=== PATIENT | female | born 1955 | race Caucasian/White ===

== ENCOUNTER → 2019-12-12 11:39 | Outpatient (BNVA) | payer BC, SELFPAY | PROVIDERS: Family Provider Family Medicine; PCP Internal Medicine Medical Oncology; Visit Provider Nurse Practitioner | DX: R39.9 Unspecified symptoms and signs involving the genitourinary system (principal); N39.0 Urinary tract infection, site not specified | CPT/HCPCS: 81003 ==

== ENCOUNTER → 2020-04-10 13:50 | Outpatient (BNVA) | payer BC, SELFPAY | PROVIDERS: Family Provider Family Medicine; PCP Family Medicine; Visit Provider Obstetrics & Gynecology | DX: N39.41 Urge incontinence (principal) | CPT/HCPCS: 80053; 81000 ==

== ENCOUNTER 2020-04-25 12:17 | Outpatient (CLI) | payer BC, SELFPAY ==
[2020-04-25 12:50] LABS: Basophils % 0.7 %; Eosinophils # 0.1 10^3/uL (0.0-0.8); Eosinophils % 2.1 %; Hematocrit 41.9 % (37.0-47.0); Hemoglobin 13.5 g/dL (11.5-15.3); Lymphocytes # 1.4 10^3/uL (0.8-4.8); Lymphocytes % 24.2 %; Mean Corpuscular HGB Conc 32.2 g/dL (30.0-36.0); Mean Corpuscular Hemoglobin 29.9 pg (28.0-34.0); Mean Corpuscular Volume 92.9 fL (81-99); Mean Platelet Volume 10.6 fL (7.4-10.4); Monocytes # 0.4 10^3/uL (0.2-0.9); Neutrophils # 3.8 10^3/uL (1.8-7.7); Neutrophils % 65.7 %; Nucleated Red Blood Cells % 0 %; Platelet Count 239 10^3/cmm (130-400); Red Blood Count 4.51 10^6/uL (4.1-5.3); Red Cell Distribution Width 13.8 % (12.1-15.1); White Blood Count 5.8 10^3/uL (4.0-10.0)
[2020-04-25 13:17] LABS: 25 Hydroxy Vitamin D 29 ng/mL (30-100); Alanine Aminotransferase 36 U/L (0-33); Albumin Level 4.3 g/dL (3.5-5.2); Alkaline Phosphatase 128 IU/L (35-105); Anion Gap 17.5 (5-19); Aspartate Amino Transferase 26 U/L (0-32); Blood Urea Nitrogen 13 mg/dL (8-23); Calcium 9.3 mg/dL (8.5-10.5); Carbon Dioxide 25 mmol/L (22-29); Chloride 103 mmol/L (98-107); Globulin 2.8 g/dL (1.3-4.6); Glomerular Filtration Rate 83.7 mL/min (90-130); Glucose 99 mg/dL (65-115); Osmolality Calculated 288 mOsm/kg (285-295); Potassium 4.5 mmol/L (3.5-5.1); Sodium 141 mmol/L (136-145); Thyroid Stimulating Hormone 3.55 uIU/mL (0.27-4.20); Total Bilirubin 0.2 mg/dL (0.15-1.2); Total Protein 7.1 g/dL (6.6-8.7)
--- NOTE | 2020-04-30 13:14 | ONC FU_ITS ---
[facility] Patient Note Patient: Callie Ramires Unit #: [id number]: [id number] Dictated By: Yony CooperDate of Visit: Apr 25, 2020 Onc MED Follow-Up/Prog Note Chief Complaint: Breast cancer. History of Present Illness: Mrs Ramires is a 64 year-old woman with grade I invasive ductal carcinoma of the right breast, stage IA (T1a, N0, M0), ER/TX positive and HER-2/blaise negative. She had previous treatment for ductal carcinoma in situ of the right breast in 2001. At that time she underwent excisional biopsy followed by reexcision lumpectomy and radiation to the right breast, which she completed in July 2002 to a total dose of 5040 cGy. She was given adjuvant tamoxifen, which she stopped in 2004 after completing 5 years of treatment. A screening mammogram in April 2014 showed scarring in the posterior right upper outer quadrant, similar to previous studies. Also noted, though, was an enlarging nodule just anterior to the postsurgical scar, measuring 7 mm on the current study. A subsequent ultrasound showed a slightly lobulated hypoechoic mass measuring 4.5 x 4.4 mm. The appearance was moderately suspicious for malignancy. She underwent ultrasound directed needle core biopsy on 05/26/2014. Pathology showed low grade infiltrating ductal carcinoma (grade 1/3). It was ER positive at 98% and TX positive at 96%. It was negative for overexpression of HER-2/blaise by IHC and by FISH. On 06/20/2014 she underwent right modified radical mastectomy with immediate TRAM flap reconstruction. The procedure also included reduction mammoplasty on the left breast. Pathology showed no residual invasive or in situ carcinoma in the mastectomy specimen and there was no involvement in 5 lymph nodes. Her postoperative course was uneventful other than the fact that she has had a long hard recovery . I had seen her again in July 2014, and following that visit she did start adjuvant hormonal therapy with anastrozole. She had evidence of osteopenia on her baseline bone density study, with T score -1.8 in the lumbar spine, -2.2 in the left hip, and -2.2 in the right hip. She started treatment with Prolia in August 2014. Dr Bonilla had seen her in October 2014 with complaints of fatigue and pain in the hips and tailbone area. He initially just had her try ibuprofen for it and continue the anastrozole, but the pain had subsequently worsened and became more generalized, to include the arms and legs. At that point Dr Bonilla did have her stop the anastrozole. Her pain did improve after stopping anastrozole, but it did not completely resolved. She then had further evaluation with bone scan in December 2014. It showed no evidence of metastatic disease. She restarted hormonal therapy with Aromasin in January 2015, and at that time she also was started on meloxicam. She had initially been tolerating the Aromasin well. However, on a scheduled follow-up visit in August 2015, she had reported significant increase in joint pain, and at that point Dr Bonilla did have her stop the medication. She was feeling better on a followup visit the next month. She has since then remained on observation/expectant management for the breast cancer. Her DEXA scan on 03/28/2017 showed severe osteopenia with T score -1.3 in the lumbar spine and mean femoral neck T score -2.1. She continued treatment with Prolia along with calcium and vitamin D supplements. However, the Prolia was subsequently discontinued due to a skin eruption. Her other medical illnesses have been limited to degenerative arthritis, GERD, and allergic rhinitis. She also has chronic anxiety. She is a nonsmoker, and she does not drink alcohol. She is here today for unscheduled visit. She is due for follow-up in August 2020. However she presents today with concerns for right shoulder and humeral pain as well as neck pain. She states the pain is been bothering her for a couple of months. She did see her primary care and was placed on Voltaren 75 mg twice daily. She states she does not think it helped just a whole lot maybe just a little but not dramatic . She states that she has some limitations with the shoulder and has some pain pretty much continuous. She states is obviously worse if she tries to work with it or lift anything. She describes neck pain as achy pain. She states that it seems to bother her when she is moving her neck at times. It is not as consistent as the shoulder pain but does tend to bother her. She states that she notices it more when she lays down. She has had no fever or chills. She denies any trauma to the neck or shoulder. She denies any overuse, such as moving furniture or lifting heavy boxes, etc. She denies any new shortness of breath orthopnea. She has had no chest pain or palpitations. Her ECOG is 1 limited due to the shoulder/arm/neck pain. Past Medical History: Allergic rhinitis Anxiety Degenerative arthritis Ductal carcinoma in situ of the right breast Gastroesophageal reflux disease Past Surgical History: Several prior breast biopsies for benign disease Right modfied radical mastectomy with TRAM flap reconstruction-Dr. Ayala in 2013 Colonoscopy in 2005 Excisional biopsy of right breast followed by re-excision lumpectomy in 1999 Allergies: CeleBREX and contrast media. Medications: Baclofen 1 Tablet (of 10 mg) Oral at bedtime Diclofenac Sodium 1 Tablet (of 75 mg) Tablet, enteric coated Oral b.i.d. Levothyroxine Sodium 1 (25 mcg) Tablet Oral daily Omeprazole 1 Tablet (of 20 mg) Tablet, enteric coated Oral daily Family History: Ms. Ramires's father at age 83: cancer history consists of Bladder cancer. Father of bladder cancer at age 83. Mother is still living at age 100. One sister is in good health. 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 Ms. Ramires has never smoked. She has no history of drinking. Ms. Ramires reports the following support systems: lives with spouse, significant other, family, or friends, lives in own house, supportive family/friends willing to assist with needs, and adequate transportation available for expected visits. Her diet consists of regular meals. She indicates her activity level as: daily activities. She has never smoked and she does not drink alcohol. Review Of Symptoms: Constitutional Denies fevers, chills, night sweats. 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 Allergic/Immunologic contrast. Eyes Denies significant visual changes. ENMT Denies changes in hearing, sore throat, mouth sores, difficulty or changes in swallowing ability. Sinus drainage. Endocrine Denies hot flashes or night sweats. Hematologic/Lymphatic Denies easy bruising or bleeding. The patient denies any tender or palpable lymph nodes. Respiratory Denies dyspnea on exertion, chest pain, cough. Cardiovascular Denies anginal chest pain. Gastrointestinal Denies nausea, vomiting, diarrhea, or constipation. History of heartburn controlled Genitourinary (F) No hematuria, hesitancy, incontinence, vaginal bleeding, discharge or other problems with urination. Musculoskeletal right arm pain. Right shoulder pain and neck pain. She states she has been having shoulder pain on the right side for 2 to 3 months. She states it seems to be getting worse. She does have some limited range of motion with the shoulder pain. She has tried anti-inflammatory orals with Voltaren but has had no relief. She has not had any imaging. She also states she is been having some neck pain that she wonders if Lalo is making her shoulders hurt. She also states she continues to have some right arm pain. She states it is kind of in the center of the upper part of her right arm. She states it feels kind of deep. She has had no rash or lesions. She denies any trauma. She states she has been working like she normally does not has not had any injury that she can recall. She states is not been swelling. It has not been red or warm. She states it just hurts. Integumentary Denies chronic rashes, inflammation, ulcerations or skin changes. Neurologic Denies headache, blurred vision, and no areas of focal weakness or numbness. Psychiatric Denies insomnia, depression, shravan or mood swings. Vital Signs: Performed on Apr 25, 2020 11:51 Height - 59.00 in Weight - 122 lbs (HIGH) BSA - 1.49 sq.m BMI - 24.64 Temperature - 98.1 F (LOW) Pulse - 72 /min Respiration - 18 /min BP - 114/57 mm(hg) O2 Sat - 94 % (LOW) Pain - 4,1 - No physically strenuous activity, but ambulatory and able to carry out light or sedentary work (e.g. office work, light house work). (ECOG) Physical Examination: Constitutional Alert, oriented, no acute distress. Skin pink, warm and dry. Head Normocephalic; atraumatic. Eyes Conjunctivae and sclerae are clear and without icterus. Pupils are reactive and equal. Neck Supple without masses or thyromegaly. No jugular venous distension. Back/Spine Non-tender to palpation. Extremities No visible deformities, no cyanosis, clubbing or edema. Limited ROM with right shoulder in rotation. Can lift both arms out to the sides evenly with the shoulder, but does have pain in the right shoulder doing so. No swelling in shoulder, or right arm. No crepitus or joint abnormality noted. Musculoskeletal No tenderness or swelling, normal range of motion in lower extremities without obvious weakness. She has a normal gait today. Integumentary No rashes or lesions. Neurologic No sensory or motor deficits, normal cerebellar function, normal gait. Psychiatric Alert and oriented times three. Coherent speech. Verbalizes understanding of our discussions today. Laboratory:Test performed on Apr 25, 2020 12:34 Sodium 141 mmol/L TSH 3.55 uIU/mL Vitamin D (25-Hydroxy), Total 29 ng/mL Potassium 4.5 mmol/L Chloride 103 mmol/L CO2 25 mmol/L Anion Gap 17.5 BUN 13 mg/dL Creatinine 0.7 mg/dL Cr Clearance (Est) 69.0600 mL/min eGFR 83.7 mL/min Glucose 99 mg/dL Calcium 9.3 mg/dL Protein, Total 7.1 g/dL Albumin 4.3 g/dL Globulin 2.8 g/dL Bilirubin, Total 0.2 mg/dL ALT (SGPT) 36 U/L AST (SGOT) 26 U/L Alkaline Phosphatase 128 IU/L WBC 5.8 10 3/uL RBC 4.51 10 6/uL HGB 13.5 g/dL HCT 41.9 % MCV 92.9 fL MCH 29.9 pg MCHC 32.2 g/dL RDW 13.8 % Platelet Count 239 10 3/cmm MPV 10.6 fL Neutrophils 3.8 10 3/uL Lymphocytes 1.4 10 3/uL Monocytes 0.4 10 3/uL Eosinophils 0.1 10 3/uL Basophils 0.0 10 3/uL Neutrophil % 65.7 % Lymphocyte % 24.2 % Monocyte % 7.0 % Eosinophil % 2.1 % Basophils % 0.7 % NRBC % 0 % Impression: 1. Patient wtih low-grade invasive ductal carcinoma of the right breast, stage IA (T1a, N0, M0), ER/TX positive and HER-2/blaise negative. The diagnosis was established by needle core biopsy on 05/26/2014. She had previously undergone lumpectomy/radiation for ductal carcinoma in situ of the right breast, and she had taken adjuvant tamoxifen. 2. She underwent right modified radical mastectomy with immediate TRAM flap reconstruction on 06/20/14. Pathology, interestingly, showed no residual malignancy in the breast. There also was no involvement in 5 lymph nodes. 3. She was given adjuvant hormonal therapy with anastrozole, which she started in July 2014. She had evidence of osteopenia on her baseline bone density. In view of the risk of osteoporosis with aromatase inhibitors, Dr Bonilla did opt to have her start treatment with Prolia in August 2014. 4. By October 2014 she had to stop the anastrozole because of increasing musculoskeletal pain. Her symptoms subsequently improved, and in January 2015 she restarted hormonal therapy with Aromasin. Initially she had tolerated it well. However, in August 2015 she presented with significant worsening of joint pain, and at that point Dr Bonilla did have her stop treatment. She has since then been followed on observation/expectant management. Her other medical illnesses include: 5. GERD. 6. Allergic rhinitis. 7. Degenerative arthritis. 8. Chronic anxiety. During follow-up she has continued to have some fatigue, and she has had some ongoing problems with pain in her chest wall/reconstruction. She also has had pain in the neck/shoulder area and upper back. She has had a mildly elevated TSH level, but she did relatively poor tolerance for levothyroxine. She is tolerated 25 mcg well thus far. She remains off of any aromatase inhibitor due to significant bone/muscle skeletal pain. She is here today for problem visit with right shoulder/humeral and cervical spine pain. She is had the pain for 2 to 3 months and is not improving with nonsteroidal anti-inflammatory drugs prescribed by her primary care. Plan: 1. Continue observation for the breast cancer. 2. We will check a CBC, CMP and TSH with labs today. She is hypothyroid and has been on levothyroxine 25 mcg daily. 3. I have requested an x-ray of this cervical spine right shoulder and right humerus to evaluate her pain. She does have a history of breast cancer although it was early stage. It has been 6 years since her original diagnosis. 4. I have asked her to increase her Voltaren 100 mg twice daily. This will be the max dosing she can take on the Voltaren. Voltaren gel is now available [id number] if she wanted to try that on the local site. 5. If her x-rays do not show any abnormality my next recommendation would be to pursue MRI of her shoulder. She has had problems with the right arm/shoulder pain for quite some time now and even on her last visit had documented that she was having some right arm pain. She has had no trauma. And therefore cannot account as to why she would be having such significant shoulder pain. It is limiting her activities of daily living. 6. She was due for CT of the chest in October 2019. The impression from the CT of the chest was a 9 mm subpleural opacity in the lingula is stable to slightly smaller and recommend a 6 to 12-month follow-up. There is a stable slightly prominent pre-tracheal lymph node measuring 10 to 11 mm which was unchanged. No new pulmonary opacities. Prior postoperative changes with right mastectomy with breast prosthesis and axillary node dissection but no other abnormalities. 7. We will call Mrs. Ramires with the results of her labs and x-rays once those are obtained. We will determine the next step but however if her x-rays are not informative on why she is having pain my next recommendation be an MRI of the shoulder. She is aware and agreeable to this at this time. Of course the MRI will be subject to insurance approval. 8. She is instructed to contact us in the interim should questions or problems arise. Signed By: Yony Cooper-, AOCNP Owen Bonilla MD <<Signature on File>>
== END 2020-04-25 12:18 | disposition home or self-care (01) ==
LOC: ONCMED 12:20
PROVIDERS: PCP Family Medicine; Visit Provider Nurse Practitioner
DX: M25.511 Pain in right shoulder (principal); M54.2 Cervicalgia; C50.411 Malignant neoplasm of upper-outer quadrant of right female breast; Z17.0 Estrogen receptor positive status [ER+]; E03.9 Hypothyroidism, unspecified; M79.10 Myalgia, unspecified site; E55.9 Vitamin D deficiency, unspecified; M81.8 Other osteoporosis without current pathological fracture; K21.9 Gastro-esophageal reflux disease without esophagitis; J30.9 Allergic rhinitis, unspecified; M19.90 Unspecified osteoarthritis, unspecified site; F41.9 Anxiety disorder, unspecified; Z79.899 Other long term (current) drug therapy; Z92.23 Personal history of estrogen therapy; Z90.11 Acquired absence of right breast and nipple; Z79.1 Long term (current) use of non-steroidal anti-inflammatories (NSAID)
CPT/HCPCS: 80053; 82306; 84443; 85025; 99214

== ENCOUNTER 2020-04-26 16:14 | Outpatient (CLI) | payer BC, SELFPAY ==
--- NOTE | 2020-04-26 | XR_ITS ---
WS: [id number] XR cervical spine 3V* [id number] REASON FOR EXAM: PAIN/WEAKNESS FINDINGS: 3 views of the cervical spine. There is mild degenerate changes of the joints of L[place]ch[place]. Degenerated disc changes C4-5 C5-6. There is no fractures seen. The odontoid process was normal. XR/XR cervical spine 3V* [id number] IMPRESSION: Degenerated disc disease C4-5, C5-6.
--- NOTE | 2020-04-26 | XR_ITS ---
WS: [id number] [place] [id number] REASON FOR EXAM: PAIN/WEAKNESS FINDINGS: The humerus is evaluated with 2 views shaft was normal. There is degenerate changes along the greater tuberosity. There was no fractures or other dyscrasias. XR/[place] [id number] IMPRESSION: Negative right humerus for fractures Degenerate changes off the greater tuberosity.
--- NOTE | 2020-04-26 | XR_ITS ---
WS: [id number] XR shoulder RT min 2V* [id number] REASON FOR EXAM: PAQIN/WEAKNESS FINDINGS: Mild degenerate changes over the greater tuberosity. The glenoid humeral articulations are normal. The scapula and clavicle show no fractures. XR/XR shoulder RT min 2V* [id number] IMPRESSION: Mild degenerated changes off the greater tuberosity.
== END 2020-04-26 16:15 | disposition home or self-care (01) ==
LOC: RAD 16:19
PROVIDERS: PCP Family Medicine; Visit Provider Nurse Practitioner
DX: R53.1 Weakness (principal); M25.521 Pain in right elbow; M25.511 Pain in right shoulder; M50.320 Other cervical disc degeneration, mid-cervical region, unspecified level
CPT/HCPCS: 72040; 73030; 73060

== ENCOUNTER 2020-05-17 15:59 | Outpatient (CLI) | payer BC, SELFPAY ==
--- NOTE | 2020-05-17 16:23 | MR_ITS ---
WS: [id number] MRI RIGHT SHOULDER NONCONTRAST TECHNIQUE: Sagittal T2, coronal T1, T2 and proton density imaging. Axial gradient PDE imaging. CLINICAL INFORMATION: RIGHT SHOULDER PAIN COMPARISON: None. FINDINGS: Mild degenerative arthritis at the AC joint with mild edema. Minimal downsloping of the acromion. Tra ce subacromial/subdeltoid fluid. Serpiginous patchy T2 hyperintense lesion within the humeral head an d proximal neck extends just the articular surface. Findings are suspicious for bony infarct or avasc ular necrosis. Metastatic disease not entirely excluded. Normal supraspinatus. Normal infraspinatus. Normal teres minor. Subscapularis is normal. Biceps tendo n is not visualized in the bicipital groove and likely chronically torn and atrophic. Partially visua lized intra-articular biceps tendon. MR/MR shoulder RT wo con* [id number] IMPRESSION: 1. Serpiginous T2 hyperintense lesion within the humeral head extending into t he neck suspicious for bony infarct or avascular necrosis. No evidence of artic ular collapse. Metastatic disease not entirely excluded. 2. Rotator cuff is intact. 3. Chronic tear of the biceps tendon not visualized in the bicipital groove. 4. Glenoid labrum appears grossly intact.
== END 2020-05-17 16:00 | disposition home or self-care (01) ==
LOC: RADWPI 16:01
PROVIDERS: Family Provider Family Medicine; PCP Family Medicine; Visit Provider Nurse Practitioner
DX: M25.511 Pain in right shoulder (principal); M75.81 Other shoulder lesions, right shoulder
CPT/HCPCS: 73221

== ENCOUNTER 2020-07-25 07:26 | Outpatient (CLI) | payer BC, SELFPAY ==
[2020-07-25 08:30] LABS: Basophils % 0.8 %; Eosinophils # 0.1 10^3/uL (0.0-0.8); Hematocrit 43.1 % (37.0-47.0); Hemoglobin 13.6 g/dL (11.5-15.3); Lymphocytes # 1.2 10^3/uL (0.8-4.8); Lymphocytes % 23.1 %; Mean Corpuscular HGB Conc 31.6 g/dL (30.0-36.0); Mean Corpuscular Volume 95.1 fL (81-99); Mean Platelet Volume 10.9 fL (7.4-10.4); Monocytes # 0.3 10^3/uL (0.2-0.9); Monocytes % 5.7 %; Neutrophils # 3.47 10^3/uL (1.8-7.7); Nucleated Red Blood Cells % 0 %; Platelet Count 229 10^3/cmm (130-400); Red Blood Count 4.53 10^6/uL (4.1-5.3); Red Cell Distribution Width 13.6 % (12.1-15.1); White Blood Count 5.1 10^3/uL (4.0-10.0)
[2020-07-25 09:13] LABS: 25 Hydroxy Vitamin D 23 ng/mL (30-100); Alanine Aminotransferase 42 U/L (0-33); Albumin Level 4.2 g/dL (3.5-5.2); Alkaline Phosphatase 114 IU/L (35-105); Aspartate Amino Transferase 23 U/L (0-32); Blood Urea Nitrogen 16 mg/dL (8-23); Calcium 8.8 mg/dL (8.5-10.5); Carbon Dioxide 26 mmol/L (22-29); Chloride 101 mmol/L (98-107); Globulin 2.9 g/dL (1.3-4.6); Glomerular Filtration Rate 71.8 mL/min (90-130); Glucose 104 mg/dL (65-115); Osmolality Calculated 283 mOsm/kg (285-295); Sodium 138 mmol/L (136-145); Thyroid Stimulating Hormone 3.81 uIU/mL (0.27-4.20); Total Bilirubin 0.2 mg/dL (0.15-1.2); Total Protein 7.1 g/dL (6.6-8.7)
== END 2020-07-25 07:27 | disposition home or self-care (01) ==
LOC: ONCMED 07:28
PROVIDERS: PCP Family Medicine; Visit Provider Nurse Practitioner
DX: C50.411 Malignant neoplasm of upper-outer quadrant of right female breast (principal); M81.8 Other osteoporosis without current pathological fracture; F41.9 Anxiety disorder, unspecified; R00.2 Palpitations; Z17.0 Estrogen receptor positive status [ER+]
CPT/HCPCS: 80053; 82306; 84443; 85025

== ENCOUNTER 2020-07-26 06:04 | Outpatient (CLI) | payer BC, SELFPAY ==
--- NOTE | 2020-07-29 14:42 | ONC FU_ITS ---
Dr. Bonilla Patient Follow-Up Note Patient: Callie Ramires Unit #: [id number]: 1955 Dicatated By: Owen Bonilla M.D.Date of Visit:Jul 26, 2020 Onc Med Follow-up/Prog Note Chief Complaint: Breast cancer. 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 She had previous treatment for ductal carcinoma in situ of the right breast in 2001. At that time she underwent excisional biopsy followed by reexcision lumpectomy and radiation to the right breast, which she completed in July 2002 to a total dose of 5040 cGy. She was given adjuvant tamoxifen, which she stopped in 2004 after completing 5 years of treatment. A screening mammogram in April 2014 showed scarring in the posterior right upper outer quadrant, similar to previous studies. Also noted, though, was an enlarging nodule just anterior to the postsurgical scar, measuring 7 mm on the current study. A subsequent ultrasound showed a slightly lobulated hypoechoic mass measuring 4.5 x 4.4 mm. The appearance was moderately suspicious for malignancy. She underwent ultrasound directed needle core biopsy on 05/26/2014. Pathology showed low grade infiltrating ductal carcinoma (grade 1/3). It was ER positive at 98% and NJ positive at 96%. It was negative for overexpression of HER-2/blaise by IHC and by FISH. On 06/20/2014 she underwent right modified radical mastectomy with immediate TRAM flap reconstruction. The procedure also included reduction mammoplasty on the left breast. Pathology showed no residual invasive or in situ carcinoma in the mastectomy specimen and there was no involvement in 5 lymph nodes. Her postoperative course was uneventful other than the fact that she has had a long hard recovery . I had seen her again in July 2014, and following that visit she did start adjuvant hormonal therapy with anastrozole. She had evidence of osteopenia on her baseline bone density study, with T score -1.8 in the lumbar spine, -2.2 in the left hip, and -2.2 in the right hip. She started treatment with Prolia in August 2014. I had seen her in October 2014 with complaints of fatigue and pain in the hips and tailbone area. I initially just had her try ibuprofen for it and continue the anastrozole, but the pain had subsequently worsened and became more generalized, to include the arms and legs. At that point I did have her stop the anastrozole. Her pain did improve after stopping anastrozole, but it did not completely resolved. She then had further evaluation with bone scan in December 2014. It showed no evidence of metastatic disease. She restarted hormonal therapy with Aromasin in January 2015, and at that time she also was started on meloxicam. She had initially been tolerating the Aromasin well. However, on a scheduled follow-up visit in August 2015, she had reported significant increase in joint pain, and at that point I did have her stop the medication. She was feeling better on a followup visit the next month. She has since then remained on observation/expectant management for the breast cancer. Her DEXA scan on 03/28/2017 showed severe osteopenia with T score -1.3 in the lumbar spine and mean femoral neck T score -2.1. She continued treatment with Prolia along with calcium and vitamin D supplements. However, the Prolia was subsequently discontinued due to a skin eruption. Her other medical illnesses have been limited to degenerative arthritis, GERD, and allergic rhinitis. She also has chronic anxiety. She is a nonsmoker, and she does not drink alcohol. She is seen for a followup visit. She has not been feeling as good. She says she has been doing more, but then she tends to crash. Her ECOG score is 1. She has good appetite. She has no fever, night sweats, or hot flashes. 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 She is having difficulty sleeping, mainly because she tends to wake up during the night and then cannot get back to sleep. She also has pain in her knees and fingers and she has pain on the bottoms of her feet. She sometimes has numbness in her left hand. She has had a skin cancer removed from the left arm. Medications: Ativan 0.5 Tablet (of 1 mg) Oral daily PRN, Diclofenac Sodium 2 Tablet (of 75 mg) Tablet, enteric coated Oral at bedtime, Flonase 1 [place](s) (of 50 mcg/act) Suspension Nasal PRN, Gabapentin 1 Capsule (of 100 mg) Oral at bedtime PRN, Levothyroxine Sodium 1 (25 mcg) Tablet Oral daily, Omeprazole 1 Tablet (of 20 mg) Tablet, enteric coated Oral daily PRN Allergies: CeleBREX, contrast media, and -mycin. Review of Systems: Constitutional - She does not have good energy. She has been doing more, but she tends to crash. Appetite is good and weight is stable. No fever, night sweats, or hot flashes. ECOG score is 1, ENMT - She has sinus drainage. No mouth sores. No sore throat or difficulty swallowing, Hematologic/Lymphatic - No abnormal bruising or bleeding, Respiratory - No shortness of breath. She sometimes has cough attributable to a tickle in her throat. No pleuritic pain or hemoptysis, Cardiovascular - No angina pain. No palpitations, Gastrointestinal - No nausea or vomiting. She has acid reflux. She does get benefit with omeprazole, which she takes as needed. No diarrhea or constipation. No blood in the stool or black stools, Genitourinary (F) - No dysuria or hematuria. No urinary frequency. She has some mild incontinence, Musculoskeletal - She has significant pain in the right shoulder and arm. She has pain in her knees and in her fingers. She also has pain on the bottoms of her feet, Integumentary - She had a skin cancer removed from her left arm, Neurologic - No headache or dizziness. She sometimes has numbness in her left hand. No other focal neurologic symptoms, Psychiatric - She has anxiety/depression. She does not sleep well at night. Vital Signs: Performed on Jul 26, 2020 16:03 Height - 59.00 in Weight - 121.4 lbs (LOW) BSA - 1.49 sq.m BMI - 24.52 Temperature - 97.5 F (LOW) Pulse - 67 /min Respiration - 18 /min BP - 117/56 mm(hg) O2 Sat - 98 % Pain - 0 Physical Examination: Constitutional - She looks pretty good generally, Eyes - Sclerae nonicteric. Conjunctivae clear, ENMT - No lesions noted in the oral cavity, Hematologic/Lymphatic - No cervical or clavicular adenopathy, Respiratory - Lungs are clear with good air movement bilaterally, Cardiovascular - Heart rhythm is regular. There is no murmur, gallop, or rub noted, Breasts - There is slight soft tissue swelling in the upper right chest wall. There are chest wall lesions noted. The left breast shows no mass. There is no axillary adenopathy, Abdomen - Soft. Liver and spleen are not enlarged. There is no abdominal mass or ascites noted and there is no inguinal adenopathy, Extremities - No edema, Neurologic - No focal neurologic deficits noted. Lab/Imaging: CBC shows hemoglobin 13.6 g, white blood cell count 5100, and platelet count 229,000. Comprehensive metabolic profile is unremarkable except for slightly elevated SGPT at 42/33 U/L and slightly elevated alkaline phosphatase at 114/105 IU/L. TSH is normal at 3.81 ???IU/mL. Impression: 1. Patient wtih low-grade invasive ductal carcinoma of the right breast, stage IA (T1a, N0, M0), ER/NJ positive and HER-2/blaise negative. The diagnosis was established by needle core biopsy on 05/26/2014. She had previously undergone lumpectomy/radiation for ductal carcinoma in situ of the right breast, and she had taken adjuvant tamoxifen. 2. She underwent right modified radical mastectomy with immediate TRAM flap reconstruction on 06/20/14. Pathology, interestingly, showed no residual malignancy in the breast. There also was no involvement in 5 lymph nodes. 3. She was given adjuvant hormonal therapy with anastrozole, which she started in July 2014. She had evidence of osteopenia on her baseline bone density. In view of the risk of osteoporosis with aromatase inhibitors, I did opt to have her start treatment with Prolia in August 2014. 4. By October 2014 she had to stop the anastrozole because of increasing musculoskeletal pain. Her symptoms subsequently improved, and in January 2015 she restarted hormonal therapy with Aromasin. Initially she had tolerated it well. However, in August 2015 she presented with significant worsening of joint pain, and at that point I did have her stop treatment. She has since then been followed on observation/expectant management. Her other medical illnesses include: 5. GERD. 6. Allergic rhinitis. 7. Degenerative arthritis. 8. Chronic anxiety. During follow-up she has continued to have some fatigue, and she has had some ongoing problems with pain in her chest wall/reconstruction. She also has had pain in the neck/shoulder area and upper back. She had a mildly elevated TSH level, but she had relatively poor tolerance for levothyroxine. She had subsequently developed more significant pain in the right shoulder and arm, and her MRI in May 2020 showed a T2 hyperintense lesion within the humeral head which was suspicious for bony infarct or avascular necrosis. At this point she continues to have pain in that area and she continues to have significant chest wall pain. She is now being followed at orthopedic clinic. Plan: She remains on observation/expectant management for the breast cancer. She will continue treatment with diclofenac for the right shoulder pain. She will stop the gabapentin, which she has not tolerated very well, and I will have her try Lyrica 75 mg twice daily. She will also start trazodone at bedtime, initially at 25 mg, but that dosage can be escalated as needed. She will be scheduled for a follow-up visit in 6 months. Signed By: Owen Bonilla M.D. <<Signature on File>>
== END 2020-07-26 06:05 | disposition home or self-care (01) ==
LOC: ONCMED 06:06
PROVIDERS: PCP Family Medicine; Visit Provider Internal Medicine Medical Oncology
DX: C50.411 Malignant neoplasm of upper-outer quadrant of right female breast (principal); M25.511 Pain in right shoulder; K21.9 Gastro-esophageal reflux disease without esophagitis; M19.90 Unspecified osteoarthritis, unspecified site; F41.9 Anxiety disorder, unspecified; M85.80 Other specified disorders of bone density and structure, unspecified site; Z90.11 Acquired absence of right breast and nipple; Z17.0 Estrogen receptor positive status [ER+]; Z92.23 Personal history of estrogen therapy; Z79.899 Other long term (current) drug therapy
CPT/HCPCS: 99214

== ENCOUNTER 2020-09-11 07:44 | Outpatient (CLI) | payer BC, SELFPAY ==
--- NOTE | 2020-09-11 08:05 | MM_ITS ---
WS: [id number] DIAGNOSTIC LEFT DIGITAL MAMMOGRAM WITH CAD HISTORY: HX OF BREAST Ca; rt MASTECTOMY COMPARISON: 09/09/2019 and 09/07/2018 Technique: CC, MLO and ML views. Breast composition: There are scattered areas of fibroglandular density. There are a few scattered b enign calcifications. No distortion or soft tissue. No mass identified or change. MM/[place] [id number] IMPRESSION: BI-RADS: 2-Benign FOLLOW UP: 1 Year Follow-up
== END 2020-09-11 07:45 | disposition home or self-care (01) ==
LOC: ONCMED 07:48
PROVIDERS: PCP Family Medicine; Visit Provider Internal Medicine Medical Oncology
DX: C50.411 Malignant neoplasm of upper-outer quadrant of right female breast (principal); Z17.0 Estrogen receptor positive status [ER+]; M81.0 Age-related osteoporosis without current pathological fracture; Z85.3 Personal history of malignant neoplasm of breast
CPT/HCPCS: 77065

== ENCOUNTER 2020-12-11 06:58 | Outpatient (CLI) | payer BC, SELFPAY ==
--- NOTE | 2020-12-11 07:15 | USCV_ITS ---
Callie Ramires Age: 65 Gender: F : 1955 Exam Date: 12/11/2020 07:14 Ordering Phys: Maritza Dave DO Technologist: Veronica Gongora [place] [facility] [place] Indication: BRUIT Risk Factors: Previous Vascular Surgery: Right Brachial BP: / Left Brachial BP: / Right Left Velocity (cm/s) Spectral Plaque Velocity (cm/s) Spectral Plaque Syst/Diast Broadening Syst/Diast Broadening 115.80/28.70 Prox CCA 109.20/ 29.80 94.80/ 32.00 Mid CCA 89.30 / 23.20 72.80/ 24.30 Distal CCA 73.90 / 24.30 75.00/ 13.20 Prox ICA 79.40 / 29.80 71.70/ 20.90 Mid ICA 90.40 / 27.60 93.70/ 25.40 Distal ICA 89.30 / 28.70 82.70 ECA 120.20 0.99 ICA/CCA 1.01 Antegrade Vertebral Antegrade 33.10/ 11.00 cm/s 45.20/ 16.50 cm/s Tri Subclavian Tri FINDINGS Minimal plaques at the bifurcations bilaterally. Intimal thickening in the common carotid arteries bilaterally. Antegrade flow in the vertebral arteries bilaterally. Normal Doppler flow signals bilaterally. CONCLUSIONS Minimal plaques at the bifurcations bilaterally. No significant stenosis, based on the above findings Dr Eben Miguel MD FAC (Electronically Signed) Final Date: 11 December 2020 18:27 S
== END 2020-12-11 06:59 | disposition home or self-care (01) ==
PROVIDERS: PCP Family Medicine; Visit Provider Family Medicine
DX: R09.89 Other specified symptoms and signs involving the circulatory and respiratory systems (principal); I65.23 Occlusion and stenosis of bilateral carotid arteries
CPT/HCPCS: 93880

== ENCOUNTER → 2020-12-20 12:53 | Outpatient (BNVA) | payer BC, SELFPAY | PROVIDERS: PCP Family Medicine; Referring Provider Family Medicine; Visit Provider Podiatrist Foot & Ankle Surgery | DX: M79.672 Pain in left foot (principal) | CPT/HCPCS: 73630 ==

== ENCOUNTER → 2021-01-01 08:16 | Outpatient (BNVA) | payer BC, SELFPAY | PROVIDERS: PCP Family Medicine; Visit Provider Family Medicine | DX: Z13.6 Encounter for screening for cardiovascular disorders (principal); E55.9 Vitamin D deficiency, unspecified; K21.9 Gastro-esophageal reflux disease without esophagitis; Z86.39 Personal history of other endocrine, nutritional and metabolic disease; E03.9 Hypothyroidism, unspecified; Z68.25 Body mass index [BMI] 25.0-25.9, adult | CPT/HCPCS: 80061; 82306; 84443 ==

== ENCOUNTER 2021-01-30 07:26 | Outpatient (CLI) | payer BC, SELFPAY ==
[2021-01-30 08:36] LABS: Basophils % 0.4 %; Eosinophils # 0.1 10^3/uL (0.0-0.8); Eosinophils % 1.3 %; Hematocrit 42.2 % (37.0-47.0); Hemoglobin 13.7 g/dL (11.5-15.3); Lymphocytes # 1.4 10^3/uL (0.8-4.8); Mean Corpuscular HGB Conc 32.5 g/dL (30.0-36.0); Mean Corpuscular Hemoglobin 29.9 pg (28.0-34.0); Mean Corpuscular Volume 92.1 fL (81-99); Mean Platelet Volume 10.4 fL (7.4-10.4); Monocytes # 0.4 10^3/uL (0.2-0.9); Monocytes % 7.3 %; Neutrophils # 3.47 10^3/uL (1.8-7.7); Neutrophils % 64.8 %; Nucleated Red Blood Cells % 0 %; Platelet Count 233 10^3/cmm (130-400); Red Blood Count 4.58 10^6/uL (4.1-5.3); Red Cell Distribution Width 13.3 % (12.1-15.1); White Blood Count 5.4 10^3/uL (4.0-10.0)
[2021-01-30 09:09] LABS: Alanine Aminotransferase 23 U/L (0-33); Alkaline Phosphatase 122 IU/L (35-105); Aspartate Amino Transferase 17 U/L (0-32); Blood Urea Nitrogen 16 mg/dL (8-23); Calcium 9.1 mg/dL (8.5-10.5); Carbon Dioxide 24 mmol/L (22-29); Chloride 105 mmol/L (98-107); Glomerular Filtration Rate 83.5 mL/min (90-130); Glucose 79 mg/dL (65-115); Osmolality Calculated 288 mOsm/kg (285-295); Sodium 139 mmol/L (136-145); Thyroid Stimulating Hormone 2.36 uIU/mL (0.27-4.20); Total Bilirubin 0.2 mg/dL (0.15-1.2)
== END 2021-01-30 07:27 | disposition home or self-care (01) ==
LOC: ONCMED 07:28
PROVIDERS: PCP Family Medicine; Visit Provider Internal Medicine Medical Oncology
DX: C50.411 Malignant neoplasm of upper-outer quadrant of right female breast (principal); Z17.0 Estrogen receptor positive status [ER+]
CPT/HCPCS: 36415; 80053; 84443; 85025

== ENCOUNTER 2021-01-31 05:52 | Outpatient (CLI) | payer BC, SELFPAY ==
--- NOTE | 2021-02-04 12:06 | ONC FU_ITS ---
Dr. Bonilla Patient Follow-Up Note Patient: Callie Ramires Unit #: [id number]: 1955 Dicatated By: Owen Bonilla M.D.Date of Visit:Jan 31, 2021 Onc Med Follow-up/Prog Note Chief Complaint: Breast cancer. 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 She had previous treatment for ductal carcinoma in situ of the right breast in 2001. At that time she underwent excisional biopsy followed by reexcision lumpectomy and radiation to the right breast, which she completed in July 2002 to a total dose of 5040 cGy. She was given adjuvant tamoxifen, which she stopped in 2004 after completing 5 years of treatment. A screening mammogram in April 2014 showed scarring in the posterior right upper outer quadrant, similar to previous studies. Also noted, though, was an enlarging nodule just anterior to the postsurgical scar, measuring 7 mm on the current study. A subsequent ultrasound showed a slightly lobulated hypoechoic mass measuring 4.5 x 4.4 mm. The appearance was moderately suspicious for malignancy. She underwent ultrasound directed needle core biopsy on 05/26/2014. Pathology showed low grade infiltrating ductal carcinoma (grade 1/3). It was ER positive at 98% and SC positive at 96%. It was negative for overexpression of HER-2/blaise by IHC and by FISH. On 06/20/2014 she underwent right modified radical mastectomy with immediate TRAM flap reconstruction. The procedure also included reduction mammoplasty on the left breast. Pathology showed no residual invasive or in situ carcinoma in the mastectomy specimen and there was no involvement in 5 lymph nodes. Her postoperative course was uneventful other than the fact that she has had a long hard recovery . I had seen her again in July 2014, and following that visit she did start adjuvant hormonal therapy with anastrozole. She had evidence of osteopenia on her baseline bone density study, with T score -1.8 in the lumbar spine, -2.2 in the left hip, and -2.2 in the right hip. She started treatment with Prolia in August 2014. I had seen her in October 2014 with complaints of fatigue and pain in the hips and tailbone area. I initially just had her try ibuprofen for it and continue the anastrozole, but the pain had subsequently worsened and became more generalized, to include the arms and legs. At that point I did have her stop the anastrozole. Her pain did improve after stopping anastrozole, but it did not completely resolved. She then had further evaluation with bone scan in December 2014. It showed no evidence of metastatic disease. She restarted hormonal therapy with Aromasin in January 2015, and at that time she also was started on meloxicam. She had initially been tolerating the Aromasin well. However, on a scheduled follow-up visit in August 2015, she had reported significant increase in joint pain, and at that point I did have her stop the medication. She was feeling better on a followup visit the next month. She has since then remained on observation/expectant management for the breast cancer. Her DEXA scan on 03/28/2017 showed severe osteopenia with T score -1.3 in the lumbar spine and mean femoral neck T score -2.1. She continued treatment with Prolia along with calcium and vitamin D supplements. However, the Prolia was subsequently discontinued due to a skin eruption. Her other medical illnesses have been limited to degenerative arthritis, GERD, and allergic rhinitis. She also has chronic anxiety. She is a nonsmoker, and she does not drink alcohol. She is seen for a followup visit. He has been feeling pretty good generally, though lately the pollen has been bothering her a lot. She has significant fatigue, but she has been working long hours. Her ECOG score is 0. She has good appetite. She has no fever or night sweats. She recently had some tightness in her throat. She says she could feel her pulse with it, but it was just transient. She has some mild exertional dyspnea. She does not have resting dyspnea, cough, or chest pain. She has no GI or complaints other than some urgency with urination. She has some pain in the right hip area and right leg. She sometimes has pain in her lower legs at night. She has been having headache associated with her allergy symptoms. She is prone to having numbness and both hands when she is sleeping. She has no other focal neurologic symptoms. Medications: Ativan 0.5 Tablet (of 1 mg) Oral daily PRN, Diclofenac Sodium 2 Tablet (of 75 mg) Tablet, enteric coated Oral at bedtime, Flonase 1 [place](s) (of 50 mcg/act) Suspension Nasal PRN, Gabapentin 1 Capsule (of 100 mg) Oral at bedtime PRN, Levothyroxine Sodium 1 (25 mcg) Tablet Oral daily, Omeprazole 1 Tablet (of 20 mg) Tablet, enteric coated Oral daily PRN Allergies: CeleBREX, contrast media, and -mycin. Vital Signs: Weight is 123 pounds. Blood pressure 116/70, pulse 67, respirations 18, temp 97.1 degrees, oxygen saturation 98%. Physical Examination: Constitutional - She looks pretty good generally, Eyes - Sclerae nonicteric. Conjunctivae clear, ENMT - No lesions noted in the oral cavity, Hematologic/Lymphatic - No cervical or clavicular adenopathy, Respiratory - Lungs are clear with good air movement bilaterally, Cardiovascular - Heart rhythm is regular. There is no murmur, gallop, or rub noted, Breasts - There are no lesions noted in the right chest wall/reconstruction. The left breast shows no mass. There is no axillary adenopathy, Abdomen - Soft. Liver and spleen are not enlarged. There is no abdominal mass or ascites noted and there is no inguinal adenopathy, Extremities - No edema. She has good dorsalis pedis pulses bilaterally, Neurologic - No focal neurologic deficits noted. Problem List: 1. Low-grade invasive ductal carcinoma of the right breast, stage IA (T1a, N0, M0), ER/SC positive and HER-2/blaise negative. The diagnosis was established by needle core biopsy on 05/26/2014. She had previously undergone lumpectomy/radiation for ductal carcinoma in situ of the right breast, and she had taken adjuvant tamoxifen. She underwent right modified radical mastectomy with immediate TRAM flap reconstruction on 06/20/14. Pathology, interestingly, showed no residual malignancy in the breast. There also was no involvement in 5 lymph nodes. 2. GERD. 3. Allergic rhinitis. 4. Degenerative arthritis. 5. Chronic anxiety. 6. Osteopenia. 7. MRI of the right shoulder in May 2020 showed a T2 hyperintense lesion within the humeral head which was suspicious for bony infarct or avascular necrosis. She has been followed at orthopedic clinic. 8. She had a mildly elevated TSH level, but she had relatively poor tolerance for levothyroxine. Problems Addressed with this Encounter and Plan: 1. Patient wtih low-grade invasive ductal carcinoma of the right breast, stage IA (T1a, N0, M0), ER/SC positive and HER-2/blaise negative. The diagnosis was established by needle core biopsy on 05/26/2014. She had previously undergone lumpectomy/radiation for ductal carcinoma in situ of the right breast, and she had taken adjuvant tamoxifen. She underwent right modified radical mastectomy with immediate TRAM flap reconstruction on 06/20/14. Pathology, interestingly, showed no residual malignancy in the breast. There also was no involvement in 5 lymph nodes. She was given adjuvant hormonal therapy with anastrozole, which she started in July 2014. She had evidence of osteopenia on her baseline bone density. In view of the risk of osteoporosis with aromatase inhibitors, I did opt to have her start treatment with Prolia in August 2014. By October 2014 she had to stop the anastrozole because of increasing musculoskeletal pain. Her symptoms subsequently improved, and in January 2015 she began further adjuvant hormonal therapy with Aromasin. Initially she had tolerated it well. However, in August 2015 she presented with significant worsening of joint pain, and at that point I did have her stop treatment. She was then followed expectantly. During follow-up she has continued to have some fatigue and some musculoskeletal pain. Overall, though, she has been doing well clinically. Thus far there has been no further recurrence of her breast cancer. She remains on observation/expectant management. I will see her again in 6 months. 2. She has had persistent pain in the right shoulder. MRI of the right shoulder in May 2020 showed a T2 hyperintense lesion within the humeral head which was suspicious for bony infarct or avascular necrosis. She has been seen at orthopedic clinic. She continue treatment with diclofenac. Signed By: Owen Bonilla M.D. <<Signature on File>>
== END 2021-01-31 05:53 | disposition home or self-care (01) ==
LOC: ONCMED 05:53
PROVIDERS: PCP Family Medicine; Visit Provider Internal Medicine Medical Oncology
DX: Z08 Encounter for follow-up examination after completed treatment for malignant neoplasm (principal); Z85.3 Personal history of malignant neoplasm of breast; M25.511 Pain in right shoulder; M89.9 Disorder of bone, unspecified; M85.80 Other specified disorders of bone density and structure, unspecified site; Z79.899 Other long term (current) drug therapy; Z92.23 Personal history of estrogen therapy; Z92.3 Personal history of irradiation; Z90.11 Acquired absence of right breast and nipple
CPT/HCPCS: 99214

== ENCOUNTER → 2021-06-07 13:16 | Outpatient (BNVA) | payer BC, SELFPAY | PROVIDERS: PCP Family Medicine; Visit Provider Podiatrist Foot & Ankle Surgery | DX: M79.672 Pain in left foot (principal); M20.42 Other hammer toe(s) (acquired), left foot; M21.622 Bunionette of left foot; L85.1 Acquired keratosis [keratoderma] palmaris et plantaris; M72.2 Plantar fascial fibromatosis | CPT/HCPCS: 73630 ==

== ENCOUNTER → 2021-06-08 08:15 | Outpatient (BNVA) | payer BC, SELFPAY | PROVIDERS: PCP Family Medicine; Visit Provider Family Medicine | DX: E55.9 Vitamin D deficiency, unspecified (principal); Z86.39 Personal history of other endocrine, nutritional and metabolic disease; E03.9 Hypothyroidism, unspecified; E78.5 Hyperlipidemia, unspecified; K21.9 Gastro-esophageal reflux disease without esophagitis; Z13.6 Encounter for screening for cardiovascular disorders | CPT/HCPCS: 82306; 84443 ==

== ENCOUNTER 2021-06-28 13:48 | Outpatient (CLI) | payer BC, SELFPAY | END 2021-06-28 13:49 | disposition home or self-care (01) | LOC: SPT 13:49 | PROVIDERS: PCP Family Medicine; Visit Provider Podiatrist Foot & Ankle Surgery | DX: Z46.89 Encounter for fitting and adjustment of other specified devices (principal); M89.9 Disorder of bone, unspecified; M79.672 Pain in left foot | CPT/HCPCS: 97760; L4361 ==

== ENCOUNTER 2021-08-07 07:54 | Outpatient (CLI) | payer BC, SELFPAY ==
[2021-08-07 08:52] LABS: Basophils % 0.6 %; Eosinophils # 0.1 10^3/uL (0.0-0.8); Eosinophils % 1.9 %; Hematocrit 42.6 % (37.0-47.0); Lymphocytes # 1.2 10^3/uL (0.8-4.8); Lymphocytes % 24.5 %; Mean Corpuscular HGB Conc 32.9 g/dL (30.0-36.0); Mean Corpuscular Hemoglobin 30.1 pg (28.0-34.0); Mean Corpuscular Volume 91.6 fl (81-99); Mean Platelet Volume 10.5 fL (7.4-10.4); Monocytes # 0.4 10^3/uL (0.2-0.9); Monocytes % 9.1 %; Neutrophils % 63.7 %; Nucleated Red Blood Cells % 0 %; Platelet Count 273 10^3/cmm (130-400); Red Blood Count 4.65 10^6/uL (4.1-5.3); Red Cell Distribution Width 13.7 % (12.1-15.1); White Blood Count 4.9 10^3/uL (4.0-10.0)
[2021-08-07 09:04] LABS: Alanine Aminotransferase 23 U/L (0-33); Albumin Level 4.1 g/dL (3.5-5.2); Alkaline Phosphatase 120 IU/L (35-105); Anion Gap 15.6 (5-19); Aspartate Amino Transferase 19 U/L (0-32); Blood Urea Nitrogen 13 mg/dL (8-23); Carbon Dioxide 25 mmol/L (22-29); Chloride 104 mmol/L (98-107); Chol HDL Ratio 5.13 mg/dL (0.0-4.40); Cholesterol 287 mg/dL (0-200); Globulin 2.8 g/dL (1.3-4.6); Glomerular Filtration Rate 83.5 mL/min (90-130); Glucose 89 mg/dL (65-115); HDL Cholesterol 56 mg/dL (60-100); LDL Cholesterol Calculated 195 mg/dL (50-129); LDL HDL Ratio 3.48 RATIO (0.00-3.22); Osmolality Calculated 290 mOsm/kg (285-295); Potassium 4.6 mmol/L (3.5-5.1); Sodium 140 mmol/L (136-145); Total Bilirubin 0.2 mg/dL (0.15-1.2); Total Protein 6.9 g/dL (6.6-8.7); Triglycerides 182 mg/dL (0-150)
== END 2021-08-07 07:55 | disposition home or self-care (01) ==
LOC: ONCMED 07:58
PROVIDERS: PCP Family Medicine; Visit Provider Internal Medicine Medical Oncology
DX: Z85.3 Personal history of malignant neoplasm of breast (principal); M19.90 Unspecified osteoarthritis, unspecified site; E78.5 Hyperlipidemia, unspecified; E03.9 Hypothyroidism, unspecified
CPT/HCPCS: 36415; 80053; 80061; 85025

== ENCOUNTER 2021-08-08 06:51 | Outpatient (CLI) | payer BC, SELFPAY ==
--- NOTE | 2021-08-09 07:11 | ONC FU_ITS ---
Dr. Bonilla Patient Follow-Up Note Patient: Callie Ramires Unit #: [id number]: [id number] Dicatated By: Owen Bonilla M.D.Date of Visit:Aug 08, 2021 Onc Med Follow-up/Prog Note Chief Complaint: Breast cancer. 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 She had previous treatment for ductal carcinoma in situ of the right breast in 2001. At that time she underwent excisional biopsy followed by reexcision lumpectomy and radiation to the right breast, which she completed in July 2002 to a total dose of 5040 cGy. She was given adjuvant tamoxifen, which she stopped in 2004 after completing 5 years of treatment. A screening mammogram in April 2014 showed scarring in the posterior right upper outer quadrant, similar to previous studies. Also noted, though, was an enlarging nodule just anterior to the postsurgical scar, measuring 7 mm on the current study. A subsequent ultrasound showed a slightly lobulated hypoechoic mass measuring 4.5 x 4.4 mm. The appearance was moderately suspicious for malignancy. She underwent ultrasound directed needle core biopsy on 05/26/2014. Pathology showed low grade infiltrating ductal carcinoma (grade 1/3). It was ER positive at 98% and MI positive at 96%. It was negative for overexpression of HER-2/blaise by IHC and by FISH. On 06/20/2014 she underwent right modified radical mastectomy with immediate TRAM flap reconstruction. The procedure also included reduction mammoplasty on the left breast. Pathology showed no residual invasive or in situ carcinoma in the mastectomy specimen and there was no involvement in 5 lymph nodes. Her postoperative course was uneventful other than the fact that she has had a long hard recovery . I had seen her again in July 2014, and following that visit she did start adjuvant hormonal therapy with anastrozole. She had evidence of osteopenia on her baseline bone density study, with T score -1.8 in the lumbar spine, -2.2 in the left hip, and -2.2 in the right hip. She started treatment with Prolia in August 2014. I had seen her in October 2014 with complaints of fatigue and pain in the hips and tailbone area. I initially just had her try ibuprofen for it and continue the anastrozole, but the pain had subsequently worsened and became more generalized, to include the arms and legs. At that point I did have her stop the anastrozole. Her pain did improve after stopping anastrozole, but it did not completely resolved. She then had further evaluation with bone scan in December 2014. It showed no evidence of metastatic disease. She restarted hormonal therapy with Aromasin in January 2015, and at that time she also was started on meloxicam. She had initially been tolerating the Aromasin well. However, on a scheduled follow-up visit in August 2015, she had reported significant increase in joint pain, and at that point I did have her stop the medication. She was feeling better on a followup visit the next month. She has since then remained on observation/expectant management for the breast cancer. Her DEXA scan on 03/28/2017 showed severe osteopenia with T score -1.3 in the lumbar spine and mean femoral neck T score -2.1. She continued treatment with Prolia along with calcium and vitamin D supplements. However, the Prolia was subsequently discontinued due to a skin eruption. Her other medical illnesses have been limited to degenerative arthritis, GERD, and allergic rhinitis. She also has chronic anxiety. She is a nonsmoker, and she does not drink alcohol. She is seen for a followup visit. She has been feeling pretty good generally, though she continues to complain that she is tired all the time. She is working and she has normal activity. ECOG score is 0. Her appetite has been good. She has no fever, night sweats, or hot flashes. She has not had shortness of breath or cough. She continues to have discomfort around the breast and axillary areas. She is otherwise not having chest pain. She has heartburn occasionally and she still occasionally has diarrhea. Bladder function remains adequate, though she occasionally has dribbling. She has been seeing Dr. Joyce for foot problems. She otherwise is not having any significant joint or bone pain. She reports having occasional headaches, attributable to allergies. She sometimes has numbness when she is sleeping. She has no other focal neurologic symptoms. Medications: Ativan 0.5 Tablet (of 1 mg) Oral daily PRN, Diclofenac Sodium 2 Tablet (of 75 mg) Tablet, enteric coated Oral at bedtime, Flonase 1 [place](s) (of 50 mcg/act) Suspension Nasal PRN, Gabapentin 1 Capsule (of 100 mg) Oral at bedtime PRN, Levothyroxine Sodium 1 (25 mcg) Tablet Oral daily, Meloxicam 1 Tablet (of 15 mg) Oral daily, Omeprazole 1 Tablet (of 20 mg) Tablet, enteric coated Oral daily PRN Allergies: CeleBREX, contrast media, and -mycin. Vital Signs: Performed on Aug 08, 2021 16:50 Height - 59.00 in Weight - 124 lbs (HIGH) BSA - 1.50 sq.m BMI - 25.05 Temperature - 98.0 F (LOW) Pulse - 73 /min Respiration - 18 /min BP - 124/62 mm(hg) O2 Sat - 98 % Pain - 3 Fatigue - 5 Physical Examination: Constitutional - She looks pretty good generally, Eyes - Sclerae nonicteric. Conjunctivae clear, ENMT - No lesions noted in the oral cavity, Hematologic/Lymphatic - No cervical, clavicular, or axillary adenopathy, Respiratory - Lungs are clear with good air movement bilaterally, Cardiovascular - Heart rhythm is regular. There is no murmur, gallop, or rub noted, Abdomen - Soft. Liver and spleen are not enlarged. There is no abdominal mass or ascites noted and there is no inguinal adenopathy, Extremities - No edema. Dorsalis pedis pulses are palpable bilaterally, Neurologic - No focal neurologic deficits noted. Lab/Imaging: Test performed on Aug 07, 2021 08:10 Cholesterol, Total 287 mg/dL Sodium 140 mmol/L Potassium 4.6 mmol/L Triglycerides 182 mg/dL Chloride 104 mmol/L LDL Cholesterol 195 mg/dL CO2 25 mmol/L Anion Gap 15.6 HDL Cholesterol 56 mg/dL BUN 13 mg/dL Cholesterol/HDL Ratio 5.13 mg/dL Creatinine 0.7 mg/dL LDL / HDL Ratio 3.48 RATIO Cr Clearance (Est) 67.8000 mL/min eGFR 83.5 mL/min Glucose 89 mg/dL Osmolality - Calculated 290 mOsm/kg Calcium 9.0 mg/dL Protein, Total 6.9 g/dL Albumin 4.1 g/dL Globulin 2.8 g/dL Bilirubin, Total 0.2 mg/dL ALT (SGPT) 23 U/L AST (SGOT) 19 U/L Alkaline Phosphatase 120 IU/L WBC 4.9 10 3/uL RBC 4.65 10 6/uL HGB 14.0 g/dL HCT 42.6 % MCV 91.6 fl MCH 30.1 pg MCHC 32.9 g/dL RDW 13.7 % Platelet Count 273 10 3/cmm MPV 10.5 fL Neutrophils 3.10 10 3/uL Lymphocytes 1.2 10 3/uL Monocytes 0.4 10 3/uL Eosinophils 0.1 10 3/uL Basophils 0.0 10 3/uL Neutrophil % 63.7 % Lymphocyte % 24.5 % Monocyte % 9.1 % Eosinophil % 1.9 % Basophils % 0.6 % NRBC % 0 % Problem List: 1. Low-grade invasive ductal carcinoma of the right breast, stage IA (T1a, N0, M0), ER/MI positive and HER-2/blaise negative. The diagnosis was established by needle core biopsy on 05/26/2014. She had previously undergone lumpectomy/radiation for ductal carcinoma in situ of the right breast, and she had taken adjuvant tamoxifen. She underwent right modified radical mastectomy with immediate TRAM flap reconstruction on 06/20/14. Pathology, interestingly, showed no residual malignancy in the breast. There also was no involvement in 5 lymph nodes. 2. GERD. 3. Allergic rhinitis. 4. Degenerative arthritis. 5. Chronic anxiety. 6. Osteopenia. 7. MRI of the right shoulder in May 2020 showed a T2 hyperintense lesion within the humeral head which was suspicious for bony infarct or avascular necrosis. She has been followed at orthopedic clinic. 8. She had a mildly elevated TSH level, but she had relatively poor tolerance for levothyroxine. Problems Addressed with this Encounter and Plan: Patient wtih low-grade invasive ductal carcinoma of the right breast, stage IA (T1a, N0, M0), ER/MI positive and HER-2/blaise negative. The diagnosis was established by needle core biopsy on 05/26/2014. She had previously undergone lumpectomy/radiation for ductal carcinoma in situ of the right breast, and she had taken adjuvant tamoxifen. She underwent right modified radical mastectomy with immediate TRAM flap reconstruction on 06/20/14. Pathology, interestingly, showed no residual malignancy in the breast. There also was no involvement in 5 lymph nodes. She was given adjuvant hormonal therapy with anastrozole, which she started in July 2014. She had evidence of osteopenia on her baseline bone density. In view of the risk of osteoporosis with aromatase inhibitors, I did opt to have her start treatment with Prolia in August 2014. By October 2014 she had to stop the anastrozole because of increasing musculoskeletal pain. Her symptoms subsequently improved, and in January 2015 she began further adjuvant hormonal therapy with Aromasin. Initially she had tolerated it well. However, in August 2015 she presented with significant worsening of joint pain, and at that point I did have her stop treatment. She was then followed expectantly. During follow-up she has continued to have some fatigue and some musculoskeletal pain, but overall she has been doing well clinically. It has now been over 6 years since she stopped adjuvant hormonal therapy in over 7 years since her mastectomy, thus far with no evidence of recurrence of the breast cancer. She remains on expectant management. At this point she can continue her regular follow-up with Dr. Dave. She needs to continue surveillance with yearly diagnostic unilateral left mammogram. I will plan to see her again only as needed. Signed By: Owen Bonilla M.D. <<Signature on File>>
== END 2021-08-08 06:52 | disposition home or self-care (01) ==
LOC: ONCMED 06:51
PROVIDERS: PCP Family Medicine; Visit Provider Internal Medicine Medical Oncology
DX: Z08 Encounter for follow-up examination after completed treatment for malignant neoplasm (principal); Z85.3 Personal history of malignant neoplasm of breast; K21.9 Gastro-esophageal reflux disease without esophagitis; M19.90 Unspecified osteoarthritis, unspecified site; F41.8 Other specified anxiety disorders; M85.80 Other specified disorders of bone density and structure, unspecified site; Z79.899 Other long term (current) drug therapy; Z79.890 Hormone replacement therapy; Z90.12 Acquired absence of left breast and nipple; Z92.21 Personal history of antineoplastic chemotherapy
CPT/HCPCS: 99214

== ENCOUNTER 2021-08-14 15:05 | Outpatient (CLI) | payer BC, SELFPAY | END 2021-08-14 15:06 | disposition home or self-care (01) | LOC: SPT 15:06 | PROVIDERS: PCP Family Medicine; Visit Provider Podiatrist Foot & Ankle Surgery | DX: Z46.89 Encounter for fitting and adjustment of other specified devices (principal); M89.9 Disorder of bone, unspecified; M25.80 Other specified joint disorders, unspecified joint | CPT/HCPCS: L3030 ==

== ENCOUNTER 2021-09-13 11:39 | Outpatient (CLI) | payer BC, SELFPAY ==
--- NOTE | 2021-09-13 11:42 | MM_ITS ---
WS: [id number] LEFT DIGITAL MAMMOGRAPHY WITH CAD CLINICAL INFORMATION: HX OF BREAST CA (RT MAST) HISTORY: History of right mastectomy. Left breast reduction COMPARISON: September 11, 2020 TECHNIQUE: 3 views of the left breast were obtained. FINDINGS: Scattered fibroglandular densities of the left breast. A few benign punctate calcifications are stabl e. No suspicious focal mass, asymmetry, calcifications, or architectural distortion. No evidence of tylor gnancy. MM/MM diagnostic mammo [id number] IMPRESSION: BI-RADS: 2-Benign FOLLOW UP: 1 Year Follow-up Recommend return to annual diagnostic mammography.
== END 2021-09-13 11:40 | disposition home or self-care (01) ==
PROVIDERS: PCP Family Medicine; Visit Provider Internal Medicine Medical Oncology
DX: Z85.3 Personal history of malignant neoplasm of breast (principal); Z90.11 Acquired absence of right breast and nipple
CPT/HCPCS: 77065

== ENCOUNTER → 2021-10-25 12:17 | Outpatient (BNVA) | payer BC, SELFPAY | PROVIDERS: PCP Family Medicine; Visit Provider Family Medicine | DX: E78.5 Hyperlipidemia, unspecified (principal) | CPT/HCPCS: 80053 ==

== ENCOUNTER → 2021-12-18 09:59 | Outpatient (BNVA) | payer BC, SELFPAY | PROVIDERS: PCP Family Medicine; Visit Provider Family Medicine | DX: E78.5 Hyperlipidemia, unspecified (principal); L82.1 Other seborrheic keratosis; Z68.25 Body mass index [BMI] 25.0-25.9, adult | CPT/HCPCS: 80053; 80061 ==

== ENCOUNTER → 2022-04-01 08:58 | Outpatient (BNVA) | payer BC, SELFPAY | PROVIDERS: PCP Family Medicine; Visit Provider Family Medicine | DX: E03.9 Hypothyroidism, unspecified (principal); E03.8 Other specified hypothyroidism; E78.2 Mixed hyperlipidemia; K21.9 Gastro-esophageal reflux disease without esophagitis; K14.8 Other diseases of tongue | CPT/HCPCS: 84443 ==

== ENCOUNTER 2022-06-13 16:10 | Outpatient (CLI) | payer BC, SELFPAY ==
[2022-06-13 17:25] LABS: Basophils % 0.3 %; Eosinophils # 0.3 10^3/uL (0.0-0.8); Eosinophils % 4.8 %; Hematocrit 43.6 % (37.0-47.0); Hemoglobin 14.2 g/dL (11.5-15.3); Lymphocytes # 1.8 10^3/uL (0.8-4.8); Mean Corpuscular HGB Conc 32.6 g/dL (30.0-36.0); Mean Corpuscular Hemoglobin 30.3 pg (28.0-34.0); Mean Platelet Volume 10.3 fL (7.4-10.4); Monocytes # 0.5 10^3/uL (0.2-0.9); Neutrophils # 3.33 10^3/uL (1.8-7.7); Neutrophils % 55.6 %; Nucleated Red Blood Cells % 0 %; Platelet Count 264 10^3/cmm (130-400); Red Blood Count 4.69 10^6/uL (4.1-5.3); Red Cell Distribution Width 13.7 % (12.1-15.1)
[2022-06-13 17:28] LABS: Erythrocyte Sedimentation Rate 6 mm/hr (0-15)
[2022-06-13 17:56] LABS: C Reactive Protein 6.4 mg/L (0.0-4.9)
== END 2022-06-13 16:11 | disposition home or self-care (01) ==
PROVIDERS: PCP Family Medicine; Visit Provider Family Medicine
DX: R51.9 Headache, unspecified (principal)
CPT/HCPCS: 85025; 85651; 86140

== ENCOUNTER 2022-08-29 14:35 | Outpatient (CLI) | payer BC, SELFPAY ==
--- NOTE | 2022-08-29 14:57 | XR_ITS ---
WS: [email or web address] Right rib detail, 2 views, 08/29/2022 Clinical Data: right rib pain Comparison: Right RIBS, 07/31/2018. Findings: No rib fractures are seen. There is no bone destruction or erosion. No pneumothorax or subcutaneous e mphysema is seen. There are surgical clips over the right chest. There is a augmentation mammoplasty implants of the right breast. XR/XR ribs RT 2V* [id number] Impression: Negative right rib detail.
--- NOTE | 2022-08-29 14:57 | XR_ITS ---
WS: [email or web address] Lumbar spine, 3 views, 08/29/2022 Clinical Data: low back pain with sciatica Comparison: Lumbar spine, 11/01/2016. Findings: No compression fractures or subluxation is seen. There is degenerative disc narrowing at L4-L5 and L5 -S1. Anterior osteophytes are present L2-L4.. The transverse processes and SI joints are normal. There are small surgical clips of minus left side of the abdomen and pelvis. XR/XR lumbar spine 2-3V* [id number] Impression: 1. Degenerative disc narrowing at L4-L5 and L5-S1. 2. Minimal anterior osteophytes L2-L4.
== END 2022-08-29 14:36 | disposition home or self-care (01) ==
PROVIDERS: PCP Family Medicine; Visit Provider Family Medicine
DX: M54.40 Lumbago with sciatica, unspecified side (principal); R07.81 Pleurodynia; M25.78 Osteophyte, vertebrae; C50.911 Malignant neoplasm of unspecified site of right female breast
CPT/HCPCS: 71100; 72100; 82378; 90686

== ENCOUNTER 2022-09-18 06:00 | Outpatient (RCR) | payer BC, SELFPAY | END 2022-09-18 23:55 | disposition home or self-care (01) | LOC: SPT 06:00 | PROVIDERS: PCP Family Medicine; Visit Provider Family Medicine | DX: M54.50 Low back pain, unspecified (principal) | CPT/HCPCS: 97161 ==

== ENCOUNTER 2022-09-18 12:56 | Outpatient (CLI) | payer BC, SELFPAY ==
--- NOTE | 2022-09-18 13:03 | MM_ITS ---
WS: [id number] LEFT 3D TOMOSYNTHESIS DIGITAL MAMMOGRAPHY WITH CAD CLINICAL INFORMATION: HX OF BREAST CA HISTORY: LEFT breast pain and soreness. COMPARISON: September 13, 2021 TECHNIQUE: 3 views of the left breast were obtained. FINDINGS: Scattered fibroglandular densities of the left breast. Punctate and lucent centered calcifications. No suspicious focal mass, asymmetry, calcifications, or architectural distortion. No evidence of tylor gnancy. MM/[place] [id number] IMPRESSION: BI-RADS: 2-Benign FOLLOW UP: 1 Year Follow-up Recommend return to annual diagnostic mammography.
== END 2022-09-18 12:57 | disposition home or self-care (01) ==
PROVIDERS: PCP Family Medicine; Visit Provider Family Medicine
DX: Z85.3 Personal history of malignant neoplasm of breast (principal)
CPT/HCPCS: 77061; G0279

== ENCOUNTER → 2022-09-30 10:50 | Outpatient (BNVA) | payer BC, SELFPAY | PROVIDERS: PCP Family Medicine; Visit Provider Family Medicine | DX: E03.9 Hypothyroidism, unspecified (principal); E78.5 Hyperlipidemia, unspecified | CPT/HCPCS: 84439; 84443 ==

== ENCOUNTER 2023-01-06 16:45 | Outpatient (CLI) | payer BC, SELFPAY ==
--- NOTE | 2023-01-06 16:57 | XR_ITS ---
WS: [email or web address] Right hip, 2 views, 01/06/2023 Clinical Data: right hip pain Comparison: Right hip, 01/02/2015. Findings: No fractures or dislocations are seen. The hip joint is intact. The soft tissues are not remarkable. The adjacent pelvis is normal. No narrowing, sclerosis, cyst formation or fragmentation of the right femoral head is seen. XR/XR hip RT 2-3V wo/w pel* [id number] Impression: Negative right hip. [place] classification: grade 0: normal radiographs
== END 2023-01-06 16:46 | disposition home or self-care (01) ==
PROVIDERS: PCP Family Medicine; Visit Provider Family Medicine
DX: M25.551 Pain in right hip (principal)
CPT/HCPCS: 73502

== ENCOUNTER 2023-02-05 15:00 | Outpatient (CLI) | payer BC, SELFPAY ==
--- NOTE | 2023-02-05 15:15 | MR_ITS ---
WS: [id number] MRI LUMBAR SPINE NONCONTRAST HISTORY: M54.41 - Lumbago with sciatica, right side COMPARISON: None available. TECHNIQUE: Sagittal and axial multisequence imaging is submitted. Normal lumbar alignment with no compression fractures or marrow edema. Mild diffuse disc desiccation. No fractures or marrow edema. Conus terminates normally at L1-2 disc level. L1-L2: Minimal annular disc bulging. No stenosis. L2-L3: Mild annular disc bulging. No significant stenosis. There is minimal disc encroachment upon th e LEFT traversing L3 nerve root but no displacement. L3-L4: Mild annular disc bulge with a shallow LEFT paracentral disc protrusion. Very minimal disc con tact on the traversing LEFT L4 nerve root. No displacement or significant stenosis. L4-L5: Mild annular disc bulging. No significant stenosis. Very minimal encroachment into the RIGHT s ubarticular recess. Mild facet joint arthritis. L5-S1: Mild annular disc bulging. Moderate central to LEFT paracentral disc protrusion. Disc protrusi on slightly contacts and displaces the traversing LEFT S1 nerve root. Mild LEFT subarticular recess a nd bilateral foraminal stenosis. Paraspinal soft tissues are negative. MR/MR lumbar spine wo con* [id number] IMPRESSION: 1. Moderate central to LEFT paracentral disc protrusion at L5-S1 with contact and displacement of the LEFT S1 nerve root. Mild LEFT subarticular recess and b ilateral foraminal stenosis. 2. Minimal disc encroachment upon the LEFT traversing L3 and L4 nerve roots. N o significant displacement. 3. Very minimal disc encroachment into the RIGHT subarticular recess at L4-5 w ith no nerve root displacement.
== END 2023-02-05 15:01 | disposition home or self-care (01) ==
PROVIDERS: PCP Family Medicine; Visit Provider Family Medicine
DX: G89.29 Other chronic pain (principal); M51.27 Other intervertebral disc displacement, lumbosacral region
CPT/HCPCS: 72148

== ENCOUNTER → 2023-03-31 09:10 | Outpatient (BNVA) | payer BC, SELFPAY | PROVIDERS: PCP Family Medicine; Visit Provider Family Medicine | DX: E03.9 Hypothyroidism, unspecified (principal); E78.5 Hyperlipidemia, unspecified; E55.9 Vitamin D deficiency, unspecified; Z86.39 Personal history of other endocrine, nutritional and metabolic disease | CPT/HCPCS: 80053; 80061; 82306; 84443; 85025 ==

== ENCOUNTER → 2023-08-28 13:39 | Outpatient (BNVA) | payer BC, SELFPAY | PROVIDERS: PCP Family Medicine; Visit Provider Family Medicine | DX: E03.9 Hypothyroidism, unspecified (principal) | CPT/HCPCS: 84443 ==

== ENCOUNTER 2023-09-19 08:39 | Outpatient (CLI) | payer BC, SELFPAY ==
--- NOTE | 2023-09-19 09:00 | US_ITS ---
WS: [email or web address] THYROID ULTRASOUND HISTORY: thyromegaly COMPARISON: None available. Right lobe: 1.3 cm x 1.4 cm x 3.3 cm (w x ap x l). Volume: 2.9 cm3. No thyromegaly. Mildly heterogeneous lobe. There is a nearly isoechoic nodule in the superior pole me asuring 5 x 6 x 9 mm. No echogenic foci. No increased vascularity. Left lobe: 0.8 cm x 1.4 cm x 2.7 cm (w x ap x l). Volume: 1.7 cm3. Small caliber thyroid. No mass or nodule. No increased vascularity. Isthmus: 0.3 cm. IMPRESSION: 1. No thyroid enlargement. No suspicious nodules. 2. Mild atrophy LEFT thyroid lobe.
== END 2023-09-19 08:40 | disposition home or self-care (01) ==
LOC: RAD 08:39
PROVIDERS: PCP Family Medicine; Visit Provider Family Medicine
DX: E01.0 Iodine-deficiency related diffuse (endemic) goiter (principal)
CPT/HCPCS: 76536

== ENCOUNTER 2023-09-22 13:09 | Outpatient (CLI) | payer BC, SELFPAY ==
--- NOTE | 2023-09-22 13:16 | MM_ITS ---
WS: [email or web address] LEFT 3D TOMOSYNTHESIS DIGITAL MAMMOGRAPHY WITH CAD CLINICAL INFORMATION: Breast cancer screening, previous breast CA HISTORY: History of RIGHT mastectomy COMPARISON: 09/18/2022 TECHNIQUE: 3 views of the left breast were obtained. FINDINGS: Scattered fibroglandular densities of the left breast. Incidental punctate and lucent centered calcif ications LEFT breast. No suspicious focal mass, asymmetry, calcifications, or architectural distortion. No evidence of tylor gnancy. IMPRESSION: MM/[place] [id number] BI-RADS: 2-Benign FOLLOW UP: 1 Year Follow-up Recommend return to annual diagnostic mammography.
== END 2023-09-22 13:10 | disposition home or self-care (01) ==
LOC: RAD 13:09
PROVIDERS: PCP Family Medicine; Visit Provider Family Medicine
DX: Z12.31 Encounter for screening mammogram for malignant neoplasm of breast (principal); Z85.3 Personal history of malignant neoplasm of breast
CPT/HCPCS: 77061; G0279

== ENCOUNTER 2024-03-12 14:32 | Outpatient (CLI) | payer OTHER, SELFPAY ==
--- NOTE | 2024-03-12 14:38 | XR_ITS ---
WS: [id number] XR hip LT 2-3V wo/w pel* [id number] REASON FOR EXAM: left hip pain FINDINGS: No fracture or focal bone lesion. Mild narrowing of the joint space. Mild subchondral sclerosis and osteophytosis of the acetabulum. No significant subchondral bone change in the femoral head. No soft tissue abnormality. XR/XR hip LT 2-3V wo/w pel* [id number] IMPRESSION: Mild osteoarthritis of the left hip.
== END 2024-03-12 14:33 | disposition home or self-care (01) ==
LOC: RAD 14:34
PROVIDERS: PCP Family Medicine; Visit Provider Family Medicine
DX: M25.552 Pain in left hip (principal); M16.12 Unilateral primary osteoarthritis, left hip; E55.9 Vitamin D deficiency, unspecified; E78.5 Hyperlipidemia, unspecified; E03.9 Hypothyroidism, unspecified; Z86.39 Personal history of other endocrine, nutritional and metabolic disease
CPT/HCPCS: 73502; 80053; 80061; 82306; 84443; 85025

== ENCOUNTER 2024-10-11 12:42 | Outpatient (CLI) | payer OTHER, SELFPAY ==
--- NOTE | 2024-10-11 13:00 | MM_ITS ---
WS: [email or web address] LEFT 3D TOMOSYNTHESIS DIGITAL MAMMOGRAPHY WITH CAD CLINICAL INFORMATION: History of breast CA HISTORY: RIGHT mastectomy and LEFT breast reduction COMPARISON: 09/22/2023 TECHNIQUE: 3 views of the left breast were obtained. FINDINGS: Scattered fibroglandular densities of the left breast. Incidental punctate calcifications similar to previous. Vascular calcification. No suspicious focal mass, asymmetry, calcifications, or architectural distortion. No evidence of tylor gnancy. MM/MM diag LT tomosynthesis [id number] IMPRESSION: DENSITY: There are scattered areas of fibroglandular density. BI-RADS: 2 - Benign. FOLLOW UP: 1 Year Follow-up Recommend return to annual diagnostic mammography.
== END 2024-10-11 12:43 | disposition home or self-care (01) ==
LOC: RAD 12:43
PROVIDERS: PCP Family Medicine; Visit Provider Family Medicine
DX: C50.911 Malignant neoplasm of unspecified site of right female breast (principal); R92.323 Mammographic fibroglandular density, bilateral breasts; R92.1 Mammographic calcification found on diagnostic imaging of breast
CPT/HCPCS: 77061; G0279

== ENCOUNTER → 2025-02-22 09:05 | Outpatient (BNVA) | payer MEDICARE, SELFPAY | PROVIDERS: PCP Family Medicine; Visit Provider Family Medicine | DX: E03.9 Hypothyroidism, unspecified (principal); E78.5 Hyperlipidemia, unspecified; K21.9 Gastro-esophageal reflux disease without esophagitis; M25.552 Pain in left hip; M54.41 Lumbago with sciatica, right side; G89.29 Other chronic pain; H53.9 Unspecified visual disturbance; L98.9 Disorder of the skin and subcutaneous tissue, unspecified; K06.8 Other specified disorders of gingiva and edentulous alveolar ridge | CPT/HCPCS: 80053; 80061; 84439; 84443; 85025 ==

== ENCOUNTER → 2025-05-26 14:42 | Outpatient (BNVA) | payer MEDICARE, OTHER, SELFPAY | PROVIDERS: PCP Family Medicine; Visit Provider Nurse Practitioner Women's Health | DX: R30.0 Dysuria (principal) | CPT/HCPCS: 81000 ==

== ENCOUNTER 2025-10-12 11:08 | Outpatient (CLI) | payer MEDICARE, OTHER, SELFPAY ==
--- NOTE | 2025-10-12 11:30 | MM_ITS ---
WS: [email or web address] LEFT 3D TOMOSYNTHESIS DIGITAL MAMMOGRAPHY WITH CAD CLINICAL INFORMATION: hx of breast ca. Reduction HISTORY: 2023 COMPARISON: 2023 TECHNIQUE: 3 views of the left breast were obtained. FINDINGS: Scattered fibroglandular densities of the left breast. A few incidental punctate calcifications. No suspicious focal mass, asymmetry, calcifications, or architectural distortion. No evidence of malignancy. MM/MM diag LT tomosynthesis [id number] IMPRESSION: DENSITY: There are scattered areas of fibroglandular density. BI-RADS: 2 - Benign. FOLLOW UP: 1 Year Follow-up Recommend return to annual diagnostic mammography.
== END 2025-10-12 11:09 | disposition home or self-care (01) ==
LOC: RAD 11:10
PROVIDERS: PCP Family Medicine; Visit Provider Family Medicine
DX: Z12.31 Encounter for screening mammogram for malignant neoplasm of breast (principal); R92.323 Mammographic fibroglandular density, bilateral breasts; R92.1 Mammographic calcification found on diagnostic imaging of breast
CPT/HCPCS: 77061; 77063

== ENCOUNTER → 2025-10-18 08:55 | Outpatient (BNVA) | payer MEDICARE, OTHER, SELFPAY | PROVIDERS: PCP Family Medicine; Visit Provider Family Medicine | DX: E03.9 Hypothyroidism, unspecified (principal) | CPT/HCPCS: 80053; 80061; 84439; 84443; 85025 ==